=== PATIENT | male | born 1995 | race Caucasian/White ===

== ENCOUNTER 2019-06-11 09:59 | Emergency (ER) | payer OTHER | END 2019-06-11 13:43 | disposition home or self-care (01) | LOC: JER 09:59 ==

== ENCOUNTER 2019-09-16 11:45 | Emergency (ER) | payer OTHER ==
[2019-09-16 11:56] VITALS: BMI 29.0
[2019-09-16] MEDS ORDERED: LACTULOSE 20 GM/30 ML UDC (FOR ORAL USE ONLY) PO ONE (12:15)
[2019-09-16] MEDS ORDERED: POLYETHYLENE GLYCOL 3350 119 GM BTL PO ONE (12:16)
--- NOTE | 2019-09-16 12:24 | PDOC ---
History of Present Illness - General Chief Complaint: Pain Stated Complaint: ABD PAIN Time Seen by Provider: 09/16/19 12:04 History Source: Patient Exam Limitations: Clinical Condition - History of Present Illness Travel History: No Initial Comments: 09/16/19 12:36 Patient with past medical history of constipation presented with complaint of 2- day history of intermittent lower abdominal pain which improved after having bowel movement 2 days ago. Patient reports pain started again this morning and patient has not had bowel movement in the past 2 days. Denies nausea, vomiting , fever, chills. Denies urinary frequency or dysuria. Patient reported taking the Pepto-Bismol this morning with minimal improvement Timing/Duration: reports: intermittent Quality: reports: aching Abdominal Pain Onset Location: reports: other (lower abdominal pain) Pain Radiation: reports: no radiation Activities at Onset: reports: none Treatment Prior to Arrive: worse with: laxative Aggravating Factors: improves with: Defecation Alleviating Factors: improves with: Defecation, Passing Gas Past History - Past Medical History Allergies/Adverse Reactions: Allergies Allergy/AdvReac Type Severity Reaction Status Date / Time No Known Allergies Allergy Verified 09/16/19 11:52 Home Medications: Ambulatory Orders No Home Medications 0 dose .ROUTE UTDICT 05/30/13 Ibuprofen [Motrin -] 600 mg PO QID #28 tablet 09/12/13 Famotidine [Pepcid -] 20 mg PO BID #14 tablet 06/11/19 Famotidine [Pepcid -] 20 mg PO BID #14 tablet 06/11/19 Mag Hydrox/Al Hydrox/Simeth [Mylanta Suspension -] 30 ml PO Q6H PRN #1 bottle Mag Hydrox/Al Hydrox/Simeth [MAALOX *SUSPENSION* -] 30 ml PO Q6H PRN #1 bottle 09/16/19 Polyethylene Glycol 3350 [Miralax (For Daily Use) -] 17 gm PO DAILY 7 Days #1 bottle 09/16/19 COPD: No - Immunization History Immunization Up to Date: Yes (CHILDHOOD VACCINATIONS) - Psycho Social/Smoking Cessation Hx Smoking Status: No Smoking History: Never smoked Number of Cigarettes Smoked Daily: 0 Information on smoking cessation initiated: No Hx Alcohol Use: No Drug/Substance Use Hx: No Review of Systems - Review of Systems Able to Perform ROS?: Yes Constitutional: No: Chills, Fever, Malaise, Weakness HEENTM: No: Symptoms Reported Respiratory: No: Symptoms reported Cardiac (ROS): No: Symptoms Reported ABD/GI: Yes: See HPI, Constipated, Abdominal cramping (lower abdominal pain). No: Symptoms Reported, Abdominal Distended, Abd. Pain w/ defecation, Blood Streaked Bowels, Diarrhea, Difficulty Swallowing, Nausea, Poor Appetite, Poor Fluid Intake, Rectal Bleeding, Vomiting, Indigestion, Tarry Stools Musculoskeletal: No: Symptoms Reported Integumentary: No: Symptoms Reported Neurological: No: Symptoms reported, Headache, Tremors, Dizziness All Other Systems: Reviewed and Negative *Physical Exam - Vital Signs Last Vital Signs Temp Pulse Resp BP Pulse Ox 98.0 F 91 H 17 123/86 96 09/16/19 11:53 09/16/19 11:53 09/16/19 11:53 09/16/19 11:53 09/16/19 11:53 - Physical Exam General Appearance: Yes: Nourished, Appropriately Dressed. No: Apparent Distress HEENT: positive: CRISTIAN, Normal ENT Inspection Neck: positive: Supple Respiratory/Chest: positive: Lungs Clear, Normal Breath Sounds. negative: Respiratory Distress, Accessory Muscle Use Cardiovascular: positive: Regular Rhythm, Regular Rate Gastrointestinal/Abdominal: positive: Flat, Soft, Decreased BS, Tenderness ( mild TTP over suprapubic region). negative: Organomegaly, Distended, Guarding, Rebound, Mass, Hepatomegaly, Spleenomegaly Musculoskeletal: positive: Normal Inspection. negative: CVA Tenderness Extremity: positive: Normal Capillary Refill, Normal Inspection Integumentary: positive: Normal Color Neurologic: positive: Fully Oriented, Alert, Normal Mood/Affect, Normal Response , Motor Strength 5/5 ED Treatment Course - RADIOLOGY Radiology Studies Ordered: Category Date Time Status KUB (KID UR & BLAD) [RAD] Stat Radiology 09/16/19 12:15 Ordered Medical Decision Making - Medical Decision Making 09/16/19 12:37 Patient with past medical history of constipation presented with complaint of 2- day history of intermittent lower abdominal pain which improved after having bowel movement 2 days ago. Patient reports pain started again this morning and patient has not had bowel movement in the past 2 days. Denies nausea, vomiting , fever, chills. Denies urinary frequency or dysuria. Patient reported taking the Pepto-Bismol this morning with minimal improvementExam significant for mild tenderness to suprapubic region without guarding or rebound. Decreased bowel sounds diffusely. X-ray of abdomen shows diffuse fecal in colon consistent with constipation. MiraLAX 17 mg p.o. and lactulose 25 mg p.o. ordered for constipation. Reassess after bowel movement 09/16/19 13:59 UA unremarkable. Patient with improvement in abdominal pain after bowel movement. Patient stable for discharge of MiraLAX daily for constipation with GI follow-up. Patient stable for discharge Discharge - Discharge Information Problems reviewed: Yes Clinical Impression/Diagnosis: Constipation Qualifiers: Constipation type: unspecified constipation type Qualified Code(s): K59.00 - Constipation, unspecified Condition: Stable Disposition: HOME - Admission No - Additional Discharge Information Prescriptions: Mag Hydrox/Al Hydrox/Simeth [MAALOX *SUSPENSION* -] 30 ml PO Q6H PRN #1 bottle PRN Reason: heartburn Polyethylene Glycol 3350 [Miralax (For Daily Use) -] 17 gm PO DAILY 7 Days #1 bottle - Follow up/Referral Referrals: Jovani Patel MD [Staff Physician] - Obie Christensen MD [Primary Care Provider] - - Patient Discharge Instructions Patient Printed Discharge Instructions: Increased Dietary Fiber May Improve Constipation Conditions With Pelvic Melchor, DI for Constipation Additional Instructions: Your symptoms likely caused by constipation. Increase fiber intake and fluid intake to help with constipation and take prescribed medication as prescribed for constipation. Follow-up referred to GI - Post Discharge Activity
[2019-09-16] MEDS ORDERED: LACTULOSE 20 GM/30 ML UDC (FOR ORAL USE ONLY) ONE (12:42)
[2019-09-16 13:41] LABS: PH,URINE 8.5 (5.0-8.0); URINE APPEARANCE CLEAR; URINE BILIRUBIN NEGATIVE (NEGATIVE); URINE COLOR YELLOW; URINE GLUCOSE (UA) NEGATIVE (NEGATIVE); URINE KETONE NEGATIVE (NEGATIVE); URINE LEUK ESTERASE NEGATIVE (NEGATIVE); URINE NITRITE NEGATIVE (NEGATIVE); URINE PROTEIN NEGATIVE (NEGATIVE); URINE UROBILINOGEN 0.2 mg/dL (0.2-1.0)
[2019-09-16 15:21] VITALS: BP 127/80; PULSE 86; TEMP 98.6
== END 2019-09-16 15:50 | disposition home or self-care (01) ==
LOC: JER 11:45
DX: K59.00 Constipation, unspecified (principal)
CPT/HCPCS: 74018-TC-FY; 81003; 87086; 99282-25

== ENCOUNTER 2020-10-08 03:28 | Emergency (ER) | payer OTHER ==
[2020-10-08] MEDS ORDERED: IBUPROFEN 600 MG TABLET (FP) PO ONE ×2 (04:15→04:19)
[2020-10-08 04:19] VITALS: BP 132/68; PULSE 74; TEMP 98.3; BMI 30.7
== END 2020-10-08 04:34 | disposition home or self-care (01) ==
LOC: JER 03:28
DX: M26.609 Unspecified temporomandibular joint disorder, unspecified side (principal)
CPT/HCPCS: 99284-25

== ENCOUNTER 2020-10-29 13:03 | Emergency (ER) | payer OTHER ==
[2020-10-29 13:34] VITALS: BP 125/75; PULSE 94; TEMP 98.4; BMI 32.3
== END 2020-10-29 14:37 | disposition home or self-care (01) ==
LOC: JER 13:03
DX: U07.1 COVID-19 (principal)
CPT/HCPCS: 99283-25; C9803; U0003

== ENCOUNTER 2020-11-15 12:40 | Emergency (ER) | payer OTHER ==
[2020-11-15 13:07] VITALS: BP 119/75; PULSE 98; TEMP 98.2; BMI 33.0
[2020-11-15] MEDS ORDERED: ACETAMINOPHEN 500 MG TABLET (FP) PO ONE (13:45)
== END 2020-11-15 14:50 | disposition home or self-care (01) ==
LOC: JER 12:40
DX: U07.1 COVID-19 (principal)
CPT/HCPCS: 71045-TC-FY; 99283-25

== ENCOUNTER 2020-11-28 17:46 | Emergency (ER) | payer OTHER ==
[2020-11-28 17:59] VITALS: BP 117/80; PULSE 86; BMI 32.4
[2020-11-28 18:03] VITALS: TEMP 98.3
[2020-11-28] MEDS ORDERED: predniSONE 20 MG TABLET (UD) PO ONE (18:16)
[2020-11-28] MEDS ORDERED: FAMOTIDINE 20 MG TABLET PO ONE (18:17)
[2020-11-28] MEDS ORDERED: predniSONE 20 MG TABLET (UD) ONE (18:27)
[2020-11-28] MEDS ORDERED: FAMOTIDINE 20 MG TABLET ONE (18:28)
== END 2020-11-28 18:33 | disposition home or self-care (01) ==
LOC: JER 17:46
DX: L23.9 Allergic contact dermatitis, unspecified cause (principal)
CPT/HCPCS: 99284-25

== ENCOUNTER 2021-01-12 04:54 | Emergency (ER) | payer OTHER ==
[2021-01-12 05:02] VITALS: BP 128/85; PULSE 85; TEMP 99.2; BMI 32.3
== END 2021-01-12 05:58 | disposition home or self-care (01) ==
LOC: FER 04:54
DX: F41.9 Anxiety disorder, unspecified (principal)
CPT/HCPCS: 99283-25

== ENCOUNTER 2021-01-26 23:53 | Emergency (ER) | payer OTHER ==
[2021-01-27 00:08] VITALS: BP 136/88; TEMP 98.5; BMI 33.9
[2021-01-27 00:17] VITALS: PULSE 101
== END 2021-01-27 01:46 | disposition home or self-care (01) ==
LOC: JER 23:53
DX: R51.9 Headache, unspecified (principal)
CPT/HCPCS: 99283-25

== ENCOUNTER 2021-04-26 10:13 | Emergency (ER) | payer OTHER ==
[2021-04-26 10:31] VITALS: BP 121/71; PULSE 88; TEMP 98.1; BMI 33.9
[2021-04-26] MEDS ORDERED: LIDOCAINE 5% TOPICAL PATCH TP ONE (11:03)
[2021-04-26] MEDS ORDERED: KETOROLAC TROMETHAMINE 60 MG/2 ML VIAL IM ONE (11:03)
[2021-04-26] MEDS ORDERED: METHOCARBAMOL 500 MG TABLET PO ONE (11:04)
[2021-04-26] MEDS ORDERED: METHOCARBAMOL 500 MG TABLET ONE (11:27)
[2021-04-26] MEDS ORDERED: KETOROLAC TROMETHAMINE 30 MG/1 ML VIAL ONE (11:27)
[2021-04-26] MEDS ORDERED: LIDOCAINE 5% TOPICAL PATCH ONE (11:27)
[2021-04-26] MEDS ORDERED: LIDOCAINE PATCH REMOVAL MC SCH (22:00)
== END 2021-04-26 12:05 | disposition home or self-care (01) ==
LOC: JER 10:13 → JERFT 10:13
PROC: 3E0233Z Introduction of Anti-inflammatory into Muscle, Percutaneous Approach (ICD-10-PCS; principal; 2021-04-26)
DX: M54.5 Low back pain (principal)
CPT/HCPCS: 72100-TC-FY; 93005; 93010; 99284-25

== ENCOUNTER 2021-05-11 17:30 | Emergency (ER) | payer OTHER ==
[2021-05-11 17:44] VITALS: BP 107/71; PULSE 68; TEMP 98; BMI 33.0
[2021-05-11] MEDS ORDERED: SODIUM CHLORIDE 1,000 ML IV STA (18:07)
[2021-05-11] MEDS ORDERED: METOCLOPRAMIDE HCL INJECTION 10 MG/2 ML VIAL IVPB ONE (18:07)
[2021-05-11] MEDS ORDERED: ACETAMINOPHEN 1000 MG/100 ML VIAL (NON FORMULARY) IVPB ONE (18:07)
[2021-05-11] MEDS ORDERED: ACETAMINOPHEN INJECTION 100 ML IVPB ONE (18:46)
[2021-05-11] MEDS ORDERED: METOCLOPRAMIDE HCL INJECTION 10 MG/2 ML VIAL ONE (18:46)
[2021-05-11 19:28] LABS: BASO % 0.5 % (0-2.0); EOS % 0.1 % (0-4.5); HEMATOCRIT 47.4 % (35.4-49); HEMOGLOBIN 16.5 GM/dL (11.7-16.9); LYMPH % 8.5 % (8-40); MCHC 34.8 g/dl (32.0-35.9); MEAN CELL VOLUME 91.9 fl (80-96); MEAN PLT VOLUME 7.3 fl (7.5-11.1); MONO % 4.8 % (3.8-10.2); NEUT % 86.1 % (42.8-82.8); PLATELET COUNT 371 10^3/uL (134-434); RBC 5.16 M/mm3 (4.00-5.60); RDW 12.4 % (11.9-15.9); WHITE BLOOD COUNT 13.7 K/mm3 (4.0-10.0)
[2021-05-11 19:49] LABS: CHLORIDE 103 mmol/L (98-107); SODIUM 136 mmol/L (136-145)
[2021-05-11 19:52] LABS: CALCIUM 9.6 mg/dL (8.5-10.1)
[2021-05-11 19:53] LABS: ALBUMIN 4.6 g/dl (3.4-5.0); ANION GAP 8 MMOL/L (8-16); BLOOD UREA NITROGEN 10.7 mg/dL (7-18); CO2 26 mmol/L (21-32); GLUCOSE,RANDOM 97 mg/dL (74-106)
[2021-05-11 19:56] LABS: CREATININE 0.9 mg/dL (0.55-1.3); SGOT/AST 32 U/L (15-37); SGPT/ALT 27 U/L (13-61)
[2021-05-11 19:57] LABS: BILIRUBIN,TOTAL 1.2 mg/dL (0.2-1)
[2021-05-11 19:58] LABS: TOT PROT 8.4 g/dl (6.4-8.2)
[2021-05-11 19:59] LABS: ALK PHOS 65 U/L (45-117)
== END 2021-05-11 21:44 | disposition home or self-care (01) ==
LOC: JER 17:30
PROC: 3E033NZ Introduction of Analgesics, Hypnotics, Sedatives into Peripheral Vein, Percutaneous Approach (ICD-10-PCS; principal; 2021-05-11)
PROC: 3E033GC Introduction of Other Therapeutic Substance into Peripheral Vein, Percutaneous Approach (ICD-10-PCS; 2021-05-11)
PROC: 3E033GC Introduction of Other Therapeutic Substance into Peripheral Vein, Percutaneous Approach (ICD-10-PCS; 2021-05-11)
PROC: 3E0337Z Introduction of Electrolytic and Water Balance Substance into Peripheral Vein, Percutaneous Approach (ICD-10-PCS; 2021-05-11)
DX: R51.9 Headache, unspecified (principal)
CPT/HCPCS: 36415; 80053; 82550; 84484; 85025; 93005; 93010; 99284-25; J0131

== ENCOUNTER 2021-06-18 23:08 | Emergency (ER) | payer OTHER ==
[2021-06-18 23:45] VITALS: BP 135/85; PULSE 100; TEMP 98.7; BMI 31.4
[2021-06-19 01:50] LABS: PH,URINE 5.5 (5.0-8.0); URINE APPEARANCE CLEAR; URINE BILIRUBIN NEGATIVE (NEGATIVE); URINE COLOR YELLOW; URINE GLUCOSE (UA) NEGATIVE (NEGATIVE); URINE KETONE TRACE (NEGATIVE); URINE LEUK ESTERASE NEGATIVE (NEGATIVE); URINE NITRITE NEGATIVE (NEGATIVE); URINE PROTEIN NEGATIVE (NEGATIVE); URINE UROBILINOGEN 0.2 mg/dL (0.2-1.0)
[2021-06-19 03:40] LABS: HIV INTERPRETATION NEGATIVE (NEGATIVE)
== END 2021-06-19 02:22 | disposition home or self-care (01) ==
LOC: JER 23:08
DX: N48.89 Other specified disorders of penis (principal)
CPT/HCPCS: 36415; 81003; 87389; 87491; 87591; 99283-25

== ENCOUNTER 2022-03-05 21:19 | Emergency (ER) | payer OTHER ==
[2022-03-05 21:27] VITALS: BP 116/76; PULSE 110; TEMP 98.1; BMI 31.9
== END 2022-03-06 00:43 | disposition home or self-care (01) ==
LOC: JERFT 21:19 → JER 21:19
DX: J06.9 Acute upper respiratory infection, unspecified (principal); R05.1 Acute cough
CPT/HCPCS: 0241U-QW; 87651; 87807; 99283-25; C9803-CS; U0003; U0005

== ENCOUNTER 2022-05-04 19:47 | Emergency (ER) | payer OTHER ==
[2022-05-04 20:02] VITALS: BP 114/66; PULSE 106; TEMP 97.8; BMI 30.7
== END 2022-05-04 21:57 | disposition home or self-care (01) ==
LOC: JERFT 19:47
DX: M54.89 Other dorsalgia (principal)
CPT/HCPCS: 99282-25

== ENCOUNTER 2022-05-06 01:57 | Emergency (ER) | payer OTHER ==
[2022-05-06 02:33] VITALS: BP 121/78; PULSE 109; TEMP 98.8; BMI 32.3
== END 2022-05-06 05:45 | disposition home or self-care (01) ==
LOC: JER 01:57
DX: R20.2 Paresthesia of skin (principal)
CPT/HCPCS: 70450-TC; 72125-TC; 93005; 93010; 99285-25

== ENCOUNTER 2022-08-13 20:43 | Emergency (ER) | payer OTHER ==
[2022-08-13 20:54] VITALS: BP 121/79; PULSE 75; RESP 18; TEMP 97.9; BMI 30.9
[2022-08-13 21:46] LABS: BASO % 0.9 % (0-2.0); EOS % 0.3 % (0-4.5); HEMATOCRIT 44.4 % (35.4-49); HEMOGLOBIN 15.6 GM/dL (11.7-16.9); MCH 31.9 pg (25.7-33.7); MCHC 35.2 g/dl (32.0-35.9); MEAN CELL VOLUME 90.6 fl (80-96); MEAN PLT VOLUME 7.7 fl (7.5-11.1); MONO % 6.8 % (3.8-10.2); PH,URINE 5.5 (5.0-8.0); PLATELET COUNT 350 10^3/uL (134-434); RDW 12.3 % (11.9-15.9); URINE APPEARANCE CLEAR; URINE BILIRUBIN NEGATIVE (NEGATIVE); URINE COLOR YELLOW; URINE GLUCOSE (UA) NEGATIVE (NEGATIVE); URINE KETONE TRACE (NEGATIVE); URINE LEUK ESTERASE NEGATIVE (NEGATIVE); URINE NITRITE NEGATIVE (NEGATIVE); URINE PROTEIN NEGATIVE (NEGATIVE); WHITE BLOOD COUNT 9.6 K/mm3 (4.0-10.0)
[2022-08-13] MEDS ORDERED: KETOROLAC TROMETHAMINE 30 MG/1 ML VIAL IVPUSH ONE (21:53)
[2022-08-13] MEDS ORDERED: PANTOPRAZOLE SODIUM 40 MG VIAL IVPUSH ONE (21:54)
[2022-08-13] MEDS ORDERED: ACETAMINOPHEN 1000 MG/100 ML BAG IVPB ONE (21:54)
[2022-08-13] MEDS ORDERED: SODIUM CHLORIDE 0.9% 500 ML INFUS.BAG IV ONE (21:55)
[2022-08-13] MEDS ORDERED: PANTOPRAZOLE SODIUM 40 MG/100 ML BAG IVPB ONE (21:57)
[2022-08-13] MEDS ORDERED: ACETAMINOPHEN INJECTION 100 ML IVPB ONE (21:57)
[2022-08-13] MEDS ORDERED: KETOROLAC TROMETHAMINE 30 MG/1 ML VIAL ONE (22:03)
[2022-08-13 22:05] LABS: ALBUMIN 4.2 g/dl (3.4-5.0); CALCIUM 9.2 mg/dL (8.5-10.1)
[2022-08-13 22:08] LABS: CREATININE 0.8 mg/dL (0.55-1.3)
[2022-08-13 22:10] LABS: BILIRUBIN,TOTAL 1.4 mg/dL (0.2-1); TOT PROT 7.8 g/dl (6.4-8.2)
== END 2022-08-14 00:11 | disposition home or self-care (01) ==
LOC: JER 20:43 → JERFT 20:43
PROC: 3E033GC Introduction of Other Therapeutic Substance into Peripheral Vein, Percutaneous Approach (ICD-10-PCS; principal; 2022-08-13)
DX: R10.32 Left lower quadrant pain (principal)
CPT/HCPCS: 36415; 74177-TC; 80053; 81003; 85025; 87086; 87186; 99285-25; Q9967

== ENCOUNTER 2022-08-26 22:15 | Emergency (ER) | payer OTHER ==
[2022-08-26 22:32] VITALS: BP 102/65; PULSE 85; RESP 19; TEMP 97.8; BMI 30.3
[2022-08-27] MEDS ORDERED: FAMOTIDINE 20 MG TABLET PO ONE (00:14)
[2022-08-27] MEDS ORDERED: diphenhydrAMINE HCL 50 MG CAPSULE PO ONE (00:14)
[2022-08-27] MEDS ORDERED: DEXAMETHASONE SOD PHOSPHATE 10 MG/1 ML VIAL IM ONE (00:14)
[2022-08-27] MEDS ORDERED: diphenhydrAMINE HCL 25 MG CAPSULE (FP) PO ONE (00:28)
[2022-08-27] MEDS ORDERED: FAMOTIDINE 20 MG TABLET ONE (00:28)
[2022-08-27] MEDS ORDERED: DEXAMETHASONE SOD PHOSPHATE 10 MG/1 ML VIAL ONE ×2 (00:28)
== END 2022-08-27 01:47 | disposition home or self-care (01) ==
LOC: JERFT 22:15
PROC: 3E023GC Introduction of Other Therapeutic Substance into Muscle, Percutaneous Approach (ICD-10-PCS; principal; 2022-08-26)
DX: T78.1XXA Other adverse food reactions, not elsewhere classified, initial encounter (principal)
CPT/HCPCS: 99284-25; J1100

== ENCOUNTER 2022-09-23 05:52 | Day surgery (SDC) | payer OTHER ==
[2022-09-22 12:15] VITALS: BMI 29.3
[2022-09-23 09:29] VITALS: TEMP 97.6
[2022-09-23 13:17] VITALS: BP 110/70; PULSE 60; RESP 16
== END 2022-09-23 12:38 | disposition home or self-care (01) ==
LOC: JASU-ENDO 05:52
PROVIDERS: ATTEND Student in an Organized Health Care Education/Training Program
PROC: 0DBN8ZX Excision of Sigmoid Colon, Via Natural or Artificial Opening Endoscopic, Diagnostic (ICD-10-PCS; principal; 2022-09-23 09:00)
DX: K52.9 Noninfective gastroenteritis and colitis, unspecified (principal); K57.30 Diverticulosis of large intestine without perforation or abscess without bleeding; D12.5 Benign neoplasm of sigmoid colon
CPT/HCPCS: 88305-TC

== ENCOUNTER 2022-09-30 10:07 | Emergency (ER) | payer OTHER ==
[2022-09-30] MEDS ORDERED: IBUPROFEN 600 MG TABLET (FP) PO ONE ×2 (10:13→10:29)
[2022-09-30] MEDS ORDERED: DEXAMETHASONE SOD PHOSPHATE 10 MG/1 ML VIAL PO ONE (10:13)
[2022-09-30 10:16] VITALS: BP 118/69; PULSE 72; RESP 16; TEMP 98.5; BMI 27.2
[2022-09-30] MEDS ORDERED: DEXAMETHASONE 4 MG TABLET (FP) ONE (10:30)
== END 2022-09-30 10:39 | disposition home or self-care (01) ==
LOC: FER 10:07
DX: J03.90 Acute tonsillitis, unspecified (principal)
CPT/HCPCS: 87651; 99283-25; J1100

== ENCOUNTER 2022-11-07 13:29 | Emergency (ER) | payer OTHER ==
[2022-11-07 13:49] VITALS: BP 112/73; PULSE 88; RESP 18; TEMP 98.9; BMI 30.4
[2022-11-07] MEDS ORDERED: MAG HYDROX/AL HYDROX/SIMETH -MYLANTA- ORAL SUSPENSION PO ONE (15:03)
[2022-11-07] MEDS ORDERED: FAMOTIDINE 20 MG TABLET PO ONE (15:03)
[2022-11-07] MEDS ORDERED: ACETAMINOPHEN 325 MG TABLET (FP) PO ONE (15:08)
[2022-11-07] MEDS ORDERED: MAG HYDROX/AL HYDROX/SIMETH 30 ML UNIT-DOSE CUP ONE (15:14)
[2022-11-07] MEDS ORDERED: FAMOTIDINE 20 MG TABLET ONE (15:14)
[2022-11-07] MEDS ORDERED: ACETAMINOPHEN 325 MG TABLET (FP) ONE (15:14)
== END 2022-11-07 16:04 | disposition home or self-care (01) ==
LOC: JER 13:29
DX: K21.9 Gastro-esophageal reflux disease without esophagitis (principal)
CPT/HCPCS: 99283-25

== ENCOUNTER 2023-03-03 00:14 | Emergency (ER) | payer OTHER ==
[2023-03-03 00:21] VITALS: BP 118/79; PULSE 94; RESP 18; TEMP 98.4; BMI 30.2
[2023-03-03] MEDS ORDERED: FAMOTIDINE 20 MG TABLET PO ONE (00:25)
[2023-03-03] MEDS ORDERED: FAMOTIDINE 20 MG TABLET ONE (00:28)
[2023-03-03 01:58] LABS: ALBUMIN 4.3 g/dl (3.4-5.0); BLOOD UREA NITROGEN 12.3 mg/dL (7-18); CALCIUM 9.7 mg/dL (8.5-10.1)
[2023-03-03 02:02] LABS: CREATININE 0.9 mg/dL (0.55-1.3)
[2023-03-03 02:03] LABS: TOT PROT 7.9 g/dl (6.4-8.2)
[2023-03-03 02:04] LABS: BILIRUBIN,TOTAL 2.3 mg/dL (0.2-1)
[2023-03-03 02:34] LABS: HEMATOCRIT 45.5 % (35.4-49); HEMOGLOBIN 15.8 GM/dL (11.7-16.9); MCH 31.3 pg (25.7-33.7); MCHC 34.8 g/dl (32.0-35.9); MEAN CELL VOLUME 89.9 fl (80-96); MEAN PLT VOLUME 8.7 fl (7.5-11.1); PLATELET COUNT 328 10^3/uL (134-434); RBC 5.06 M/mm3 (4.00-5.60); RDW 12.7 % (11.9-15.9); WHITE BLOOD COUNT 10.5 K/mm3 (4.0-10.0)
== END 2023-03-03 02:48 | disposition home or self-care (01) ==
LOC: FER 00:14
DX: R10.13 Epigastric pain (principal)
CPT/HCPCS: 36415; 80053; 83690; 85027; 99283-25

== ENCOUNTER 2023-05-12 05:18 | Day surgery (SDC) | payer OTHER ==
[2023-05-11 11:32] VITALS: BMI 29.8
[2023-05-12 09:29] VITALS: BP 112/71; PULSE 71; RESP 14
[2023-05-12 09:46] VITALS: TEMP 98
== END 2023-05-12 09:30 | disposition home or self-care (01) ==
LOC: JASU-ENDO 05:18
PROVIDERS: ATTEND Student in an Organized Health Care Education/Training Program
PROC: 0DB78ZX Excision of Stomach, Pylorus, Via Natural or Artificial Opening Endoscopic, Diagnostic (ICD-10-PCS; 2023-05-12)
PROC: 0DB68ZX Excision of Stomach, Via Natural or Artificial Opening Endoscopic, Diagnostic (ICD-10-PCS; 2023-05-12)
PROC: 0DB98ZX Excision of Duodenum, Via Natural or Artificial Opening Endoscopic, Diagnostic (ICD-10-PCS; principal; 2023-05-12 08:30)
DX: K29.50 Unspecified chronic gastritis without bleeding (principal)
CPT/HCPCS: 88305-TC; 88342-TC

== ENCOUNTER 2024-01-07 16:19 | Emergency (ER) | payer OTHER ==
[2024-01-07 16:46] VITALS: BP 117/68; PULSE 77; RESP 16; TEMP 98.2; BMI 30.4
[2024-01-07] MEDS: TETANUS AND DIPHTHERIA TOXOID 0.5 ML DISP.SYRIN IM ONE (18:26)
== END 2024-01-07 18:44 | disposition home or self-care (01) ==
LOC: JERFT 16:19
PROC: 0HQFXZZ Repair Right Hand Skin, External Approach (ICD-10-PCS; principal; 2024-01-07)
PROC: 3E0234Z Introduction of Serum, Toxoid and Vaccine into Muscle, Percutaneous Approach (ICD-10-PCS; 2024-01-07)
DX: S61.210A Laceration without foreign body of right index finger without damage to nail, initial encounter (principal); W25.XXXA Contact with sharp glass, initial encounter
CPT/HCPCS: 73140-TC-RT-FY; 99283-25

== ENCOUNTER 2024-01-17 11:35 | Emergency (ER) | payer OTHER ==
[2024-01-17 11:41] VITALS: BP 109/67; PULSE 76; RESP 18; TEMP 97.7; BMI 30.7
== END 2024-01-17 12:25 | disposition home or self-care (01) ==
LOC: JER 11:35 → JERFT 11:35
DX: Z48.02 Encounter for removal of sutures (principal)
CPT/HCPCS: 99281-25

== ENCOUNTER 2024-03-24 21:14 | Emergency (ER) | payer OTHER ==
[2024-03-24 21:19] VITALS: BP 111/75; PULSE 98; RESP 20; TEMP 98.7; BMI 30.7
[2024-03-24] MEDS ORDERED: diphenhydrAMINE HCL 25 MG CAPSULE (FP) PO ONE (22:34)
[2024-03-24] MEDS ORDERED: FAMOTIDINE 20 MG TABLET ONE (22:34)
[2024-03-24] MEDS: FAMOTIDINE 20 MG TABLET PO ONE (22:36)
[2024-03-24] MEDS: diphenhydrAMINE HCL 25 MG CAPSULE (FP) PO ONE (22:36)
== END 2024-03-24 23:00 | disposition home or self-care (01) ==
LOC: JERFT 21:14
DX: T78.40XA Allergy, unspecified, initial encounter (principal); L29.9 Pruritus, unspecified; R06.02 Shortness of breath
CPT/HCPCS: 93005; 93010; 99283-25

== ENCOUNTER 2024-05-10 17:58 | Emergency (ER) | payer OTHER ==
[2024-05-10 18:04] VITALS: BP 109/73; PULSE 85; RESP 20; TEMP 98.4; BMI 30.7
== END 2024-05-10 19:28 | disposition home or self-care (01) ==
LOC: JERFT 17:58
DX: F43.9 Reaction to severe stress, unspecified (principal); R25.2 Cramp and spasm; M79.605 Pain in left leg; F41.9 Anxiety disorder, unspecified
CPT/HCPCS: 99283-25

== ENCOUNTER 2024-08-08 14:35 | Emergency (ER) | payer OTHER ==
[2024-08-08 14:40] VITALS: BP 131/76; PULSE 95; RESP 16; TEMP 97.8; BMI 29.8
== END 2024-08-08 15:02 | disposition home or self-care (01) ==
LOC: JERFT 14:35
DX: J02.9 Acute pharyngitis, unspecified (principal); M79.10 Myalgia, unspecified site; R05.9 Cough, unspecified; R51.9 Headache, unspecified
CPT/HCPCS: 99283-25

== ENCOUNTER 2024-10-29 06:32 | Emergency (ER) | payer OTHER ==
[2024-10-29 06:59] VITALS: BP 113/68; PULSE 119; RESP 24; TEMP 100.9; BMI 31.4
[2024-10-29] MEDS ORDERED: KETOROLAC TROMETHAMINE 30 MG/1 ML VIAL ONE (07:32)
[2024-10-29] MEDS ORDERED: ACETAMINOPHEN 325 MG TABLET (FP) ONE (07:32)
[2024-10-29] MEDS ORDERED: ONDANSETRON *ODT* 4 MG TABLET ONE (07:40)
[2024-10-29] MEDS: KETOROLAC TROMETHAMINE 30 MG/1 ML VIAL IM ONE (07:43)
[2024-10-29] MEDS: ACETAMINOPHEN 325 MG TABLET (FP) PO ONE (07:45)
[2024-10-29] MEDS: ONDANSETRON *ODT* 4 MG TABLET SL ONE (07:45)
== END 2024-10-29 08:23 | disposition home or self-care (01) ==
LOC: JER 06:32
PROC: 3E0133Z Introduction of Anti-inflammatory into Subcutaneous Tissue, Percutaneous Approach (ICD-10-PCS; principal; 2024-10-29)
DX: J10.1 Influenza due to other identified influenza virus with other respiratory manifestations (principal); R50.9 Fever, unspecified; R53.1 Weakness; R51.9 Headache, unspecified; M79.10 Myalgia, unspecified site; Z20.822 Contact with and (suspected) exposure to COVID-19
CPT/HCPCS: 0241U-QW; 99284-25; Q0162